=== PATIENT | female | born 1945 | race Two or more races ===

== ENCOUNTER → 2021-08-15 | Outpatient (CLI) | payer MEDICARE, MEDICAID ==
[~2021-08-15] MED LIST: ASPI-963 PO; ATOR20TA86 PO; BENA40TA3 PO; GLIM1TAB7 PO; REGADENOSON 0.4 MG/5 ML SYRINGE ONE; SITA1TAB5 PO
== END | disposition home or self-care (01) ==
LOC: CFH 08:16
PROVIDERS: ATTEND Internal Medicine Cardiovascular Disease
DX: I25.9 Chronic ischemic heart disease, unspecified (principal); R06.00 Dyspnea, unspecified
CPT/HCPCS: 78452; 93017; A9502; J2785